=== PATIENT | female | born 2000 | race Caucasian/White ===

== ENCOUNTER 2022-02-26 22:04 | Emergency (ER) | payer BC, SELFPAY ==
[2022-02-26 22:08] VITALS: BP 114/71; PULSE 96; RESP 18; TEMP 37.2; O2SAT 99; BMI 38.0
[2022-02-27 00:33] VITALS: BP 122/84; PULSE 94; RESP 18; TEMP 36.1; O2SAT 98
--- NOTE | 2022-02-27 00:34 | ED_ITS ---
HPI - Extremity Problem General Chief complaint: Extremity Injury, Upper Stated complaint: nail inj Time Seen by Provider: 02/27/22 00:07 Source: patient Mode of arrival: ambulatory History of Present Illness HPI Narrative: 21-year-old female with no significant past medical history presenting to the ED complaining right index finger nail injury [employer]. Reports entire nail lifted off the nail bed after getting caught on something. Denies crush injury/trauma, numbness or tingling Onset (ago): hour(s) Related Data Allergies Allergy/AdvReac Type Severity Reaction Status Date / Time No Known Allergies Allergy Verified 02/26/22 22:08 Review of Systems Review of Systems: Constitutional: No Fever, No Chills ENT/Mouth: No Ear Pain, No sore throat, No Rhinorrhea, No Swallowing Difficulty Cardiovascular: No Chest Pain, No SOB Respiratory: No Cough, No Sputum Gastrointestinal: No Nausea, No Vomiting, No Abdominal pain Musculoskeletal: + joint pain, No Myalgias, No Joint Swelling Skin: +nail injury, No rash Neuro: No Weakness, No Numbness, No Paresthesias Yes all other systems are reviewed and are negative [facility] Past Medical History Attestation statement: The following information was validated with the patient. Social History Social History Advance Directives: No Advance Directives Information Provided: Yes Physical Exam Vital Signs: Vital Signs: Last Vital Signs Temp 99 F 02/26/22 22:08 Pulse 96 02/26/22 22:08 Resp 18 02/26/22 22:08 BP 114/71 02/26/22 22:08 Pulse Ox 99 02/26/22 22:08 BMI result Body Mass Index 38.0 Const: General: cooperative, healthy appearing and no acute distress Orientation/consciousness: patient oriented x3 Limitations: no limitations HEENT: Head: Yes normal to inspection and Yes atraumatic Ears: hearing grossly normal bilaterally General nose exam: Normal external nose present Face and sinus: Yes normal facial exam Eyes: General: appearance normal, both eyes and all related structures EOM: EOMs intact bilaterally Neck: Neck: Yes normal visual inspection and Yes no meningeal signs Resp: Effort & Inspection: normal respiratory effort and no respiratory distress Cardio: Rate: regular rate Peripheral pulses: radial pulses present Skin: Rashes: no rashes Wounds: no wounds Neuro: General: patient oriented x3, tone normal, moves all extremities and no meningeal signs Extrem: Other: Right index finger nail plate lifted from nailbed greatest at ulnar aspect with lateral root overlying eponchyium. Nailbed intact without laceration. Eponychium intact MDM - Extremity (Nontraumatic) MDM Narrative Medical decision making narrative: 21-year-old female with no significant past medical history presenting to the ED complaining right index finger nail injury [employer]. On exam VSS, NAD, PE as above. Nail plate reduced without complication Medical Records Attestation: I reviewed the patient's medical records. Lab Data Attestation: I reviewed the patient's lab results. Procedures Procedure Narrative Procedure Narrative: Nail plate reduced back into matrix/cuticle without complications Discharge Plan Discharge Clinical Impression: Traumatic avulsion of nail plate of finger Clinical Impression: (Ruled Out): Fracture of wrist Patient Disposition: Home, Self-Care Instructions: Nail Avulsion (ED) Additional Instructions: Try to keep your nail in place in nail bed as long as possible. Keep Steri- Strips dry and clean. If area begins to look infected, there is red streaking, drainage, or you fever please return to the emergency department Referrals: ED Physician,Generic [Physician] - (as needed)
[2022-02-27] MEDS: Lidocaine HCl 1 % MPF 5 ML VIAL SUBCUT (00:56)
== END 2022-02-27 01:01 | disposition home or self-care (01) ==
PROVIDERS: Emergency Provider Student in an Organized Health Care Education/Training Program
DX: S61.300A Unspecified open wound of right index finger with damage to nail, initial encounter (principal); X58.XXXA Exposure to other specified factors, initial encounter; Y93.9 Activity, unspecified; Y92.9 Unspecified place or not applicable; Y99.9 Unspecified external cause status
CPT/HCPCS: 99283; 99284